=== PATIENT | female | born 1975 | race Hispanic/Latino ===

== ENCOUNTER 2018-06-24 09:34 | Outpatient (CLI) | payer BC, OTHER ==
[~2018-06-24 09:34] MED LIST: Iopamidol 370 76% 100 ML VIAL ONE
--- NOTE | 2018-06-24 14:23 | CT ---
CT ABDOMEN AND PELVIS WITH AND WITHOUT IV CONTRAST: 06/24/2018 HISTORY: Elevated liver function tests. FINDINGS: The liver demonstrates a normal CT appearance. No hepatic mass is seen. The portal veins are patent . There are subcentimeter, gpv-fvdop-jm-characterize, hypodense lesions seen in each kidney, with a lar dot 1.4 cm hypodense lesion in the mid portion right kidney, which demonstrates fluid attenuation com patible with a cyst. There is minimal atelectasis in the medial right lung base. The lung bases are otherwise clear. The spleen, pancreas, bilateral adrenal glands, and urinary bladder demonstrate a normal CT appearanc e. Low density foci are seen in the region of the cervix, probably related to nabothian cysts. There is an irregular hypodense structure seen within the right ovary, measuring 1.8 cm x 0.9 cm, probably re lated to an involuting follicle or cyst. There is a small, 1.7 cm, hypodense lesion in the left ovar y, likely related to cyst/dominant follicle. Minimal atherosclerotic plaque is present within the infrarenal abdominal aorta. The appendix is visualized and is normal in caliber. Mild degenerative changes are seen within the visualized lower thoracic, as well as involving the lum bar spine, primarily related to osteophytes, anteriorly. IMPRESSION: 1. No acute findings are seen in the abdomen or pelvis. 2. Subcentimeter, irt-wpian-tv-characterize, hypodense lesions in each kidney, statistically likely related to renal cysts. There is a larger renal cyst seen in mid portion right kidney, measuring 1.4 cm. 3. Small bilateral ovarian cysts/dominant follicles. 4. 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 POS: [facility]
== END 2018-06-24 09:35 | disposition home or self-care (01) ==
LOC: SCSCT 09:34
PROVIDERS: ATTEND Internal Medicine Gastroenterology
DX: R74.8 Abnormal levels of other serum enzymes (principal); N28.9 Disorder of kidney and ureter, unspecified; N28.1 Cyst of kidney, acquired; N83.202 Unspecified ovarian cyst, left side; N83.201 Unspecified ovarian cyst, right side; R93.7 Abnormal findings on diagnostic imaging of other parts of musculoskeletal system
CPT/HCPCS: 74170

== ENCOUNTER 2018-07-10 07:41 | Day surgery (SDC) | payer BC ==
[2018-07-09 15:23] VITALS: BMI 33.3
[2018-07-10 08:05] LABS: Prothrombin Time 12.9 SEC (12.0-14.7)
[2018-07-10 08:33] LABS: Hemoglobin 12.5 g/dL (12.0-16.0); Mean Corpuscular HGB CONC 32.3 g/dL (32.0-36.0); Mean Corpuscular Hemoglobin 30.8 pg (27.0-31.0); Mean Corpuscular Volume 95.3 fL (78.0-98.0); Platelet Count 299 thou/uL (130-400); RBC Distribution Width 12.4 % (11.5-14.5); Red Blood Cell (RBC) Count 4.07 mill/uL (4.20-5.40)
[2018-07-10 08:51] VITALS: BP 126/82; TEMP 98
[2018-07-10 09:05] LABS: #Basophils 0.1 thou/uL (0.0-0.2); #Eosinphils 0.2 thou/uL (0.0-0.7); #Lymphocytes 1.7 thou/uL (1.20-3.40); #Monocytes 0.5 thou/uL (0.11-0.59); #Neutrophils 2.4 thou/uL (1.40-6.50); %Basophils 2.3 % (0.0-1.0); %Eosinophils 4.7 % (0.0-10.0); %Lymphocytes 33.5 % (21.0-51.0); %Monocytes 10.5 % (0.0-10.0); Eosinophils 9 % (0-10); Lymphocytes 34 % (21-51); MDiff Complete? YES; Monocytes 4 % (0-10); Neutrophil 52 % (42-75); Stomatocytes SLIGHT = 2-5 cells (100X) (0-1/hpf)
[2018-07-10] MEDS ORDERED: Lidocaine 1% PF 5 ML VIAL ONE (09:08)
--- NOTE | 2018-07-10 12:03 | ULT ---
SONOGRAPHIC GUIDED RANDOM HEPATIC BIOPSY: HISTORY: Abnormal liver function tests. FINDINGS: After explaining the procedure and answering all questions, sonographic survey was performed. A subx iphoid left liver lobe approach was planned. Sterile technique, buffered local anesthesia, sonograph ic guidance, and a subxiphoid approach were used to carefully advance a 17 gauge Trocar needle into t he left liver lobe. Position was confirmed with sonography. A total of two 18-gauge core biopsy specimens were obtained and eventually submitted to pathology for evaluation. The needle was removed. Postprocedure imaging shows no evidence of complication. The patient tolerated the procedure well and was returned to the holding area in good condition for furth er monitoring. IMPRESSION: Technically successful sonographic guided random hepatic biopsy. Pathology is pending. POS: [facility]
== END 2018-07-10 11:30 | disposition home or self-care (01) ==
LOC: ULT 07:41
PROVIDERS: ATTEND Internal Medicine Gastroenterology
PROC: 0FB23ZX Excision of Left Lobe Liver, Percutaneous Approach, Diagnostic (ICD-10-PCS; principal; 2018-07-10)
DX: K83.1 Obstruction of bile duct (principal); K76.89 Other specified diseases of liver; I10 Essential (primary) hypertension; E66.9 Obesity, unspecified; Z68.33 Body mass index [BMI] 33.0-33.9, adult; Z79.899 Other long term (current) drug therapy
CPT/HCPCS: 36415; 47000; 76942; 85025; 85610; 85730; 88307; 88313; 88341; 88342; J2001

== ENCOUNTER 2018-08-05 08:44 | Outpatient (CLI) | payer BC ==
[2018-08-05] MEDS ORDERED: Gadobenate Dimeglumine 529 MG/1 ML (20ML VIAL) ONE (11:34)
--- NOTE | 2018-08-05 13:08 | MRI ---
MRI ABDOMEN WITH AND WITHOUT CONTRAST WITH MRCP: HISTORY: Elevated LFTs. TECHNIQUE: Multiplanar, multisequence MR images were obtained of the abdomen with and without IV contrast. MRCP images were performed with 3D rotational reformats. FINDINGS: The liver demonstrates normal signal intensity without focal lesions or intrahepatic ductal dilatatio n. The gallbladder and biliary tree are normal in appearance. There are nonenhancing foci of high T2 signal in the bilateral kidneys, measuring up to 9 mm in size, which represent simple cysts. The adrenal glands, spleen, and pancreas are unremarkable. No abdominal adenopathy is seen. No marrow signal abnormality is present. IMPRESSION: 1. Bilateral renal cysts. 2. No significant biliary or hepatic abnormality. POS: [facility]
== END 2018-08-05 08:45 | disposition home or self-care (01) ==
LOC: TBSIIMAG 08:44 → MRI 08:45
DX: R74.8 Abnormal levels of other serum enzymes (principal); N28.1 Cyst of kidney, acquired
CPT/HCPCS: 74181; 74183; A9577

== ENCOUNTER 2019-02-02 07:31 | Outpatient (CLI) | payer BC ==
--- NOTE | 2019-02-02 08:04 | ULT ---
EXAM: US Hepatic Doppler PROVIDED CLINICAL HISTORY: Abnormal liver function tests COMPARISON: CT abdomen on 06/24/2018 FINDINGS: The pancreas is completely obscured by bowel gas. The liver, gallbladder, and spleen demonstrate a normal sonographic appearance. The common duct measu res 0.3 cm in diameter which is within normal limits. Hepatic Doppler evaluation with spectral analysis and color flow evaluation is performed. There is no rmal directional flow seen within the portal, hepatic, splenic veins with arterial waveforms present within the hepatic and splenic arteries. IMPRESSION: 1. Hepatopetal flow within the portal, hepatic, and splenic veins. 2. Normal appearance of the liver without focal lesion seen. 3. No gallbladder calculi are seen, and common duct is normal in caliber.
== END 2019-02-02 07:32 | disposition home or self-care (01) ==
LOC: SCSULT 07:31
PROVIDERS: ATTEND Physician Assistant Medical
DX: K74.3 Primary biliary cirrhosis (principal); R94.5 Abnormal results of liver function studies
CPT/HCPCS: 36415; 76705; 82105

== ENCOUNTER 2019-09-13 07:39 | Outpatient (CLI) | payer BC ==
--- NOTE | 2019-09-13 08:24 | ULT ---
ULTRASOUND ABDOMEN: HISTORY: Biliary cholangitis FINDINGS: Exam is limited due to overlying bowel gas. The aorta and pancreas are not satisfactorily visualized. The liver, spleen, gallbladder and visualized portions of the IVC appear normal. The bilateral renal cysts noted on the MRI of 08/05/2028 are not definitely seen on this exam. There i s a 5 mm echogenic focus in the inferior cortex of the left kidney. The common duct measures 4mm in diameter. No free fluid is seen. IMPRESSION: 1. No evidence of cholelithiasis. 2. Probable nonobstructing left renal calculus.
== END 2019-09-13 07:40 | disposition home or self-care (01) ==
LOC: BICULT 07:39
PROVIDERS: ATTEND Internal Medicine
DX: K74.3 Primary biliary cirrhosis (principal)
CPT/HCPCS: 93975

== ENCOUNTER 2022-05-21 12:14 | Outpatient (CLI) | payer BC | END 2022-05-21 12:15 | disposition home or self-care (01) | LOC: ULT 12:14 | PROVIDERS: ATTEND Internal Medicine | DX: K74.3 Primary biliary cirrhosis (principal); N28.9 Disorder of kidney and ureter, unspecified; R93.2 Abnormal findings on diagnostic imaging of liver and biliary tract | CPT/HCPCS: 76705 ==

== ENCOUNTER 2022-06-18 07:57 | Outpatient (CLI) | payer BC | END 2022-06-18 07:58 | disposition home or self-care (01) | LOC: CT 07:57 | PROVIDERS: ATTEND Internal Medicine | DX: N28.1 Cyst of kidney, acquired (principal) | CPT/HCPCS: 74170 ==